=== PATIENT | male | born 1960 | race Caucasian/White ===

== ENCOUNTER 2022-01-25 14:05 | Emergency (ER) | payer OTHER, SELFPAY ==
--- NOTE | ~2022-01-25 | XR_ITS ---
EXAMINATION: XR KNEE, RIGHT CLINICAL INFORMATION: Fall, trauma, pain COMPARISON: None TECHNIQUE: Four views of the right knee. FINDINGS: Normal bony mineralization. No fracture, dislocation, or destructive process. There is small to moderate suprapatellar effusion. Hoffa's fat pad appears normal. No joint narrowing or erosive change. There is small central osteophyte at the lateral femoral condyle. Mild spurring at quadriceps insertion patella. XR/XR knee RT 4V IMPRESSION: -Small to moderate suprapatellar effusion. -No fracture or dislocation or destructive process.
[2022-01-25 15:50] VITALS: BP 141/74; PULSE 60; RESP 17; TEMP 35.9; O2SAT 100; BMI 31.1
--- NOTE | 2022-01-25 16:26 | ED.LOWEXIN ---
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 Patient was pushing a hand truck on a wet floor, when his right leg splint off and bent backwards. Patient has pain in his right knee now. No numbness or tingling, patient did not hit head, no loss of consciousness. Patient is recovering alcoholic MD complaint: knee injury Onset (ago): hour(s) (4) Injury: Right: knee Type of Injury: unknown Place: work Severity: severe Severity scale (1-10): 9 Relieving factors: nothing Exacerbating factors: weight bearing, movement and palpation Context: other (did the splits) Associated symptoms: unable to bear weight Other symptoms: none Related Data Previous Rx's Medication Instructions Recorded naproxen 500 mg tablet 500 mg PO BID 10 Days #20 tab 01/25/22 Allergies Allergy/AdvReac Type Severity Reaction Status Date / Time No Known Allergies Allergy Verified 01/25/22 15:50 Review of Systems Constitutional: Constitutional: Denies body ache(s), Denies chills, Denies fatigue, Denies fever(s), Denies headache(s), Denies malaise and Denies weakness Eyes: Eyes: Denies diplopia ENT: Denies vertigo, Denies dizziness, Denies otalgia, Denies headache(s), Denies mouth pain, Denies post nasal drip, Denies sinus pain, Denies sinus pressure, Denies sore throat and Denies throat swelling Cardiovascular: Cardiovascular: Denies chest pain, Denies syncope, Denies leg edema, Denies lightheadedness, Denies Loss of Consciousness, Denies palpitations and Denies dyspnea Respiratory: Respiratory: Denies chest congestion, Denies cough and Denies dyspnea Gastrointestinal: Gastrointestinal: Denies abdominal pain, Denies hematochezia, Denies constipation, Denies diarrhea and Denies vomiting Musculoskeletal: Musculoskeletal: Denies deformity, Reports arthralgias, Reports joint swelling, Reports limited range of motion, Denies muscle weakness, Denies numbness, Denies radiating pain into limb and Denies tingling Neurologic: Denies confusion, Denies vertigo, Denies dizziness, Denies syncope, Denies headache(s), Denies numbness, Denies tingling and Denies weakness Psychiatric: Psychiatric: Denies anxiety, Denies confusion and Denies depression Endocrine: Endocrine: Denies fatigue and Denies palpitations Allergic/Immunologic: Allergic/Immunologic: Denies throat swelling PMFSH Social History Social History Advance Directives: No Physical Exam Vital Signs: Vital Signs: Last Vital Signs Temp 96.6 F L 01/25/22 15:50 Pulse 60 01/25/22 15:50 Resp 17 01/25/22 15:50 BP 141/74 H 01/25/22 15:50 Pulse Ox 100 01/25/22 15:50 BMI result Body Mass Index 31.1 Const: General: No confusion Nutritional Appearance: well nourished Orientation/consciousness: No confusion Limitations: no limitations HEENT: Head: Yes normal to inspection, Yes No palpable skull fracture present, Yes normocephalic and Yes atraumatic Eyes: Conjunctivae: conjunctivae normal Pupils: Equal, round and reactive pupils present EOM: EOMs intact bilaterally Neck: Neck: Yes full ROM, Yes no lymphadenopathy and Yes supple Resp: Effort & Inspection: normal respiratory effort and able to speak in complete sentences Auscultation: clear to auscultation bilaterally, no crackles, no rales, no rhonchi and no wheezes Cardio: Rate: regular rate Rhythm: regular rhythm Heart sounds: S1 normal heart sound present and S2 normal heart sound present GI: Inspection: Yes normal to inspection Palpation (GI): Soft to palpation, nontender, no guarding and not rigid Percussion: Yes normal to percussion Auscultation: normal bowel sounds Skin: General skin exam: no rashes or lesions noted Neuro: General: No confusion Cranial nerves: Yes Equal, round and reactive pupils present Extrem: Right lower extremity: normal capillary refill, no joint enlargement and knee (unable to vargus/valgus stress or do anterior drawer d/t pain) Details: tenderness Location: of the patella and of the medial joint line; Negative for not of the popliteal fossa and abnormal ROM Details: pain with active ROM during Details: in flexion and pain with passive ROM during Details: in flexion; Negative for abnormal knee ligament exam, no ecchymosis, no crepitus, no deformity and no unusual warmth; No no cyanosis and no edema Psych: Appearance: grossly normal Affect: normal affect Attitude: cooperative Thought process: Normal thought process present Course Course Course Narrative: 51-year-old male presents for a right knee injury that he sustained earlier today at work. On exam, patient is stable vitals, right knee is normal to inspection, patient is tender over the medial joint line. Patient is intact right lower extremity sensation, distal pulses, and motor strength. It is very painful for patient to move his knee at all, did not do ligamentous exam due to pain Reevaluation(s) Reevaluation #1: Knee sprain with small effusion. RICE, Naproxen, knee immobilizer, crutches, f/u with Ortho FINDINGS: Normal bony mineralization. No fracture, dislocation, or destructive process. There is small to moderate suprapatellar effusion. Hoffa's fat pad appears normal. No joint narrowing or erosive change. There is small central osteophyte at the lateral femoral condyle. Mild spurring at quadriceps insertion patella.? XR/XR knee RT 4V IMPRESSION: -Small to moderate suprapatellar effusion. -No fracture or dislocation or destructive process. Discharge Plan Discharge Clinical Impression: Right knee sprain, Effusion of knee joint right Patient Disposition: Home, Self-Care Instructions: Knee Sprain (ED), Crutch Instructions (ED), R.I.C.E. Treatment (ED), Knee Immobilizer (ED) Additional Instructions: Please call orthopedics at the following number [phone] if you have not heard from them by , I have referred you to them; they should be calling you. Please use the knee immobilizer and crutches, and rest, ice, and elevate your right leg. Please take Naproxen as prescribed Prescriptions: New naproxen 500 mg tablet 500 mg PO BID 10 Days Qty: 20 0RF Referrals: Yuliya Hsu MD [Physician] - Stand Alone Forms: Work/School Release
[2022-01-25] MEDS: Acetaminophen 325 MG TABLET 975 MG PO (16:39)
== END 2022-01-25 18:29 | disposition home or self-care (01) ==
PROVIDERS: Emergency Provider Emergency Medicine Emergency Medical Services
DX: S83.91XA Sprain of unspecified site of right knee, initial encounter (principal); M25.461 Effusion, right knee; X58.XXXA Exposure to other specified factors, initial encounter; Y93.9 Activity, unspecified; Y92.9 Unspecified place or not applicable; Y99.9 Unspecified external cause status
CPT/HCPCS: 73564; 99282; 99283

== ENCOUNTER 2022-02-09 07:21 | Outpatient (REF) | payer OTHER, SELFPAY ==
--- NOTE | ~2022-02-09 | XR_ITS ---
EXAMINATION: PAIN IN RIGHT KNEE. CLINICAL INFORMATION: Pain. COMPARISON: None TECHNIQUE: Single sunrise view. FINDINGS: The patellofemoral compartment joint space is maintained normally. No bony erosive changes or periarticular spurring are seen. The soft tissues are normal. XR/XR knee RT 1V IMPRESSION: Unremarkable single sunrise view.
== END 2022-02-09 07:22 | disposition home or self-care (01) ==
LOC: HO.HOSX 07:21
PROVIDERS: Visit Provider Physician Assistant
DX: S83.200A Bucket-handle tear of unspecified meniscus, current injury, right knee, initial encounter (principal)
CPT/HCPCS: 73560; 99202

== ENCOUNTER 2022-02-24 19:01 | Outpatient (REF) | payer OTHER, SELFPAY ==
--- NOTE | ~2022-02-24 | MR_ITS ---
EXAMINATION: MR KNEE WITHOUT CONTRAST, RIGHT CLINICAL INFORMATION: Meniscal tear. COMPARISON: None TECHNIQUE: MRI of the knee without contrast was performed using routine sequences on a high-field scanner. FINDINGS: MENISCI: Medial Meniscus: Intact. Lateral Meniscus: There is increased signal along the inner third portion of the body of the lateral meniscus seen on a single coronal image. Findings suspicious but not definitive for tear. LIGAMENTS: Cruciate: Intact. Collateral: Medial collateral ligament: There is thickening and heterogeneous increased signal throughout the proximal ligament indicative of partial tear likely acute or subacute. Lateral ligaments intact. EXTENSOR MECHANISM: Normal ARTICULAR CARTILAGE/BONE: Patellofemoral Compartment: Normal. Medial Compartment: Normal. Lateral Compartment: There is cartilage loss and a central osteophyte involving the posterior weightbearing medial femoral condyle extending over an area of 7 mm transverse and 23 mm AP. There is additional high-grade cartilage loss with small central osteophyte in the posterior weightbearing tibial articular surface measuring approximately 4 x 4 mm. There is a subchondral/osteochondral fracture nondisplaced nondepressed along the posterior rim of the lateral plateau. JOINT FLUID AND BURSAE: Mild joint effusion and small Peters's cyst. MR/MR knee RT wo con IMPRESSION: Possible tear body of the lateral meniscus. Partial tear of the proximal medial collateral ligament acute versus subacute. Subchondral versus osteochondral impaction fracture posterior aspect of lateral plateau. [id number] osteoarthritis of the lateral compartment. Mild joint effusion and small Peters's cyst.
== END 2022-02-24 19:02 | disposition home or self-care (01) ==
LOC: HO.MRI 19:01
PROVIDERS: Visit Provider Physician Assistant
DX: S83.203A Other tear of unspecified meniscus, current injury, right knee, initial encounter (principal)
CPT/HCPCS: 73721

== ENCOUNTER → 2022-03-10 09:59 | Outpatient (BNVA) | payer OTHER, SELFPAY | PROVIDERS: Visit Provider Orthopaedic Surgery | DX: S83.209D Unspecified tear of unspecified meniscus, current injury, unspecified knee, subsequent encounter (principal) | CPT/HCPCS: 99212 ==